=== PATIENT | female | born 1995 | race Caucasian/White ===

== ENCOUNTER 2016-11-22 16:48 | Emergency (ER) | payer OTHER ==
[2016-11-22 16:58] VITALS: TEMP 98.6
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
[2016-11-22 19:27] LABS: HCG,QUALITATIVE URINE NEGATIVE (NEGATIVE)
[2016-11-22 19:32] LABS: SQUAMOUS EPITHIAL 9 /hpf (0-5); URINE BILIRUBIN NEGATIVE (NEGATIVE); URINE BLOOD NEGATIVE (NEGATIVE); URINE CLARITY Hazy (Clear); URINE COLOR Yellow (YELLOW); URINE GLUCOSE (UA) NORMAL (Normal); URINE LEUKOCYTE ESTERASE TRACE Leu/uL (Negative); URINE NITRATE NEGATIVE (NEGATIVE); URINE PROTEIN NEGATIVE (NEGATIVE); URINE UROBILINOGEN NORMAL mg/dL (0.2-1.0)
[2016-11-22] MEDS ORDERED: cefTRIAXone (Rocephin) 250 mg Inj IM STA (19:44)
[2016-11-22] MEDS ORDERED: Emtricitabine-Tenofovir 200 mg-300 mg Tab PO STA (19:44)
[2016-11-22] MEDS ORDERED: Emtricitabine-Tenofovir 200 mg-300 mg Tab PO NR (19:45)
[2016-11-22 20:06] LABS: BASO # 0.1 K/uL (0.0-0.2); BASO % 0.7 % (0.0-2.0); EOS % 0.6 % (0.0-4.0); LYMPH # 2.1 K/uL (1.0-4.3); LYMPH % 25.9 % (20.0-40.0); MEAN CELL VOLUME 78.1 fL (81.0-99.0); MEAN CORPUSCULAR HEMOGLOBIN 26.5 pg (27.0-31.0); MEAN CORPUSCULAR HGB CONC 33.9 g/dL (33.0-37.0); MEAN PLATELET VOLUME 9.2 fL (7.2-11.7); MONO # 0.4 K/uL (0.0-0.8); MONO % 5.1 % (0.0-10.0); NEUT # 5.4 K/uL (1.8-7.0); NEUT % 67.7 % (50.0-75.0); RBC 4.89 Mil/uL (3.80-5.20); RED CELL DISTRIBUTION WIDTH 13.1 % (11.5-14.5)
[2016-11-22 20:11] LABS: ALBUMIN 4.3 g/dL (3.5-5.0)
[2016-11-22 20:14] LABS: ALB/GLOB RATIO 1.3 (1.0-2.1); AST/SGOT 18 U/L (14-36); BLOOD UREA NITROGEN 8 mg/dL (7-17); GFR AFRICAN-AMERICAN > 60; GFR NON-AFRICAN AMERICAN > 60
[2016-11-22 20:15] LABS: ALT/SGPT 23 U/L (9-52); CALCIUM 9.2 mg/dl (8.6-10.4)
[2016-11-22] MEDS ORDERED: Naproxen 550 mg Tab PO STA (20:44)
[2016-11-22] MEDS ORDERED: Naproxen 550 mg Tab PO ONE (20:47)
[2016-11-22 20:52] VITALS: BP 118/75; PULSE 75; RESP 16
[2016-11-22 21:57] VITALS: O2SAT 96
== END 2016-11-22 20:52 | disposition home or self-care (01) ==
LOC: C.ER 16:48
DX: Z04.41 Encounter for examination and observation following alleged adult rape (principal)
CPT/HCPCS: 80053; 81001; 84703; 85025; 86592; 86703; 86706; 96372; 99282; J0696

== ENCOUNTER 2016-11-28 21:34 | Emergency (ER) | payer SELFPAY ==
[2016-11-28 23:09] LABS: RBC URINE < 1 /hpf (0-3); URINE BACTERIA RARE (<OCC); URINE BILIRUBIN NEGATIVE (NEGATIVE); URINE BLOOD 2+ (NEGATIVE); URINE COLOR Yellow (YELLOW); URINE GLUCOSE (UA) NORMAL (Normal); URINE KETONE NEGATIVE (NEGATIVE); URINE LEUKOCYTE ESTERASE NEG Leu/uL (Negative); URINE PROTEIN NEGATIVE (NEGATIVE); URINE UROBILINOGEN NORMAL mg/dL (0.2-1.0); WBC URINE 2 /hpf (0-5)
[2016-11-28] MEDS ORDERED: Lidocaine 2% Jelly (Uro-Jet) ONE (23:39)
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
[2016-11-29 01:36] VITALS: BP 110/72; PULSE 88; RESP 20; TEMP 98; O2SAT 99
== END 2016-11-29 01:00 | disposition home or self-care (01) ==
LOC: C.ER 21:34
DX: A60.00 Herpesviral infection of urogenital system, unspecified (principal)